=== PATIENT | female | born 1965 | race Caucasian/White ===

== ENCOUNTER 2018-02-23 00:14 | Outpatient (CLI) | payer MEDICARE, MEDICAID ==
[~2018-02-23 00:14] MED LIST: ALBU1.25 NEB; BENA20TA82 PO; HCTZ25T PO; LEVO50TA78 PO; NORCO10T PO
== END 2018-02-23 23:59 | disposition home or self-care (01) ==
LOC: DIABETIC 00:14
PROVIDERS: ATTEND Student in an Organized Health Care Education/Training Program
DX: Z71.3 Dietary counseling and surveillance (principal); E66.9 Obesity, unspecified; R63.4 Abnormal weight loss; J44.9 Chronic obstructive pulmonary disease, unspecified; I10 Essential (primary) hypertension
CPT/HCPCS: 97802

== ENCOUNTER 2018-03-29 00:22 | Outpatient (CLI) | payer MEDICARE, MEDICAID | END 2018-03-29 23:59 | disposition home or self-care (01) | LOC: DIABETIC 00:22 | PROVIDERS: ATTEND Student in an Organized Health Care Education/Training Program | DX: Z71.3 Dietary counseling and surveillance (principal); Z53.21 Procedure and treatment not carried out due to patient leaving prior to being seen by health care provider ==

== ENCOUNTER 2018-05-04 03:08 | Outpatient (CLI) | payer MEDICARE, MEDICAID | END 2018-05-04 23:59 | disposition home or self-care (01) | LOC: DIABETIC 03:08 | PROVIDERS: ATTEND Student in an Organized Health Care Education/Training Program | DX: Z71.3 Dietary counseling and surveillance (principal); E66.9 Obesity, unspecified; J44.9 Chronic obstructive pulmonary disease, unspecified; I10 Essential (primary) hypertension; Z87.891 Personal history of nicotine dependence | CPT/HCPCS: 97802 ==

== ENCOUNTER 2019-11-07 06:49 | Day surgery (SDC) | payer MEDICARE, MEDICAID ==
[2019-11-01 16:25] LABS: BASOPHILS # (AUTO) 0.1 X10'3 (0-0.2); BASOPHILS % (AUTO) 1.7 % (0-1); EOSINOPHILS # (AUTO) 0.1 X10'3 (0-0.9); EOSINOPHILS % (AUTO) 1.2 % (0-6); LYMPHOCYTES # (AUTO) 1.5 X10'3 (1.1-4.8); LYMPHOCYTES % (AUTO) 24.5 % (21-51); MEAN CORPUSCULAR HEMOGLOBIN 29.9 PG (27.0-31.0); MEAN CORPUSCULAR VOLUME 90.4 FL (78-98); MEAN PLATELET VOLUME 8.4 FL (7.4-10.4); MONOCYTES # (AUTO) 0.4 X10'3 (0-0.9); MONOCYTES % (AUTO) 6.4 % (2-12); NEUTROPHILS # (AUTO) 3.9 X10'3 (1.8-7.7); NEUTROPHILS % (AUTO) 66.2 % (42-75); PRE OP HEMOGLOBIN 14.2 g/dL (12.0-16.0); PRE OP PLATELET COUNT 207 X10'3 (140-440); RED BLOOD COUNT 4.76 X10'6 (4.20-5.60); RED CELL DISTRIBUTION WIDTH 13.3 % (11.5-14.5)
[2019-11-01 16:27] LABS: CLARITY,URINE CLOUDY (Clear); COLOR,URINE YELLOW (Yellow); GLUCOSE, URINE NEGATIVE (Neg); KETONES,URINE NEGATIVE (Neg); LEUKOCYTE ESTERASE ,URINE NEGATIVE (Neg); NITRITES, URINE NEGATIVE (Neg); OCCULT BLOOD,URINE NEGATIVE (Neg); PROTEIN,URINE NEGATIVE (Neg); UROBILINOGEN,URINE 0.2 E.U/dL (0.2-1.0)
[2019-11-01 16:38] LABS: PRE OP PROTIME 10.1 SECONDS (9.0-12.0)
[2019-11-01 16:45] LABS: UA COLLECTION TYPE CLN CATCH MIDSTREAM
[2019-11-01 16:46] LABS: BACTERIA,URINE 1+ /HPF (Neg); CAL OXALATE CRYSTALS 3+ /HPF (NEGATIVE); MUCUS STRANDS MANY /LPF (Neg); RBC,URINE NONE SEEN /HPF (0-2); SQUAMOUS EPITHELIAL CELL,UR MANY /LPF (FEW); WBC,URINE 0-4 /HPF (0-4)
[2019-11-01 16:50] LABS: ALBUMIN 3.9 G/DL (3.4-5.0); ALBUMIN/GLOBULIN RATIO 1.1 (1.1-1.5); ALKALINE PHOSPHATASE 91 IU/L (46-116); BLOOD UREA NITROGEN 25 MG/DL (7-18); BUN/CREATININE RATIO 35.2 (6.6-38.0); CALCIUM 9.5 MG/DL (8.5-10.1); CHLORIDE 105 MMOL/L (99-107); CREATININE 0.71 MG/DL (0.40-0.90); PRE OP ALT 16 U/L (30-65); PRE OP ANION GAP 5 (8-16); PRE OP AST 15 U/L (10-37); PRE OP BILIRUB, TOTAL 0.5 MG/DL (0.0-1.0); PRE OP GLUCOSE 70 MG/DL (70-104); PRE OP POTASSIUM 4.1 MMOL/L (3.4-5.1); PRE OP SODIUM 142 MMOL/L (135-145); TOTAL CARBON DIOXIDE 31.8 MMOL/L (24-32); TOTAL PROTEIN 7.3 G/DL (6.4-8.2); eGFR 86 ML/MIN
[~2019-11-07] VITALS: Ht 170.2 cm; Wt 77.1 kg
[2019-11-07] VITALS (14 sets, daily range): BP systolic 112–155; BP diastolic 60–85
[~2019-11-07 06:49] MED LIST changes: +ALBU18HF2 INH; -BENA20TA82 PO; +DILT120T3 PO; -HCTZ25T PO; +albuterol 2.5 MG/3 ML nebule NEB ONE; +ceFOXitin sod/dextrose 2g/50ml 50 ML IV ONE; +famotidine 20mg tablet PO ONE; +ringers solution, lacted 1,000 ML IV SCH
[2019-11-07] MEDS ORDERED: BUPIVAcaine/PF 2.5 mg/ml (0.25%) 30ml vial ONE (07:53)
[2019-11-07] MEDS ORDERED: ringers solution, lacted 1,000 ML IV SCH (08:14)
[2019-11-07] MEDS ORDERED: morphine 4 MG/ML inj SYRINge IV PRN (08:15)
[2019-11-07] MEDS ORDERED: morphine 2 MG/ML inj. syringe IV PRN (08:15)
[2019-11-07] MEDS ORDERED: meperidine/PF 25mg/ml syringe IV PRN ×3 (08:15)
[2019-11-07] MEDS ORDERED: ondansetron/PF 4mg/2ml inj IV PRN (08:15)
[2019-11-07] MEDS ORDERED: proCHLORperazine 10 MG/2 ml inj IV PRN (08:15)
[2019-11-07] MEDS ORDERED: dexamethasone sod phosphate 10mg/ml inj ONE (08:20)
[2019-11-07] MEDS ORDERED: sevoflurane 250ml liquid IH ONE (08:20)
[2019-11-07] MEDS ORDERED: midazolam 2 mg/2 ml injection ONE (08:27)
[2019-11-07] MEDS ORDERED: fentaNYL /PF 50mcg/ml 5ml ampule ONE (08:29)
[2019-11-07] MEDS ORDERED: LIDOcaine 2% (20mg/ml) 5ml vial ONE (08:30)
[2019-11-07] MEDS ORDERED: propofol inj 20 ML IV ONE (08:30)
[2019-11-07] MEDS ORDERED: rocuronium 10mg/ml inj IV ONE (08:31)
[2019-11-07] MEDS ORDERED: ondansetron/PF 4mg/2ml inj ONE (08:45)
[2019-11-07] MEDS ORDERED: acetaminophen 1,000mg/100ml IV 100 ML IV ONE (08:50)
--- NOTE | 2019-11-07 10:24 | NUR ---
Received from OR via [facility], accompanied by Anesthesiologist DR ESTRELLA and report given by Anesthesiologist. PT DROWSY, DENIES PAIN, ABDOMEN W/4 LAP SITES W/DERMABOND, CDI, SHIRLEY PAD IN PLACE. Addendum: 11/07/19 at 1045 by Maryann Marti RN Amended: Links added.
[2019-11-07] MEDS ORDERED: HYDROcodone/acetaminophen 10/325mg tab PO ONE (12:35)
--- NOTE | 2019-11-07 13:14 | NUR ---
D/C INSTRUCTIONS GIVEN AND GONE OVER W/PT WHO VERBALIZED UNDERSTANDING, PT COMFORTABLE, AMBULATES WELL, HAD LARGE VOID, TOLERATING LIQUIDS, PT D/CD TO HOME VIA W/C TO PRIVATE VEHICLE W/O INCIDENT. Addendum: 11/07/19 at 1331 by Maryann Marti RN Amended: Links added.
== END 2019-11-07 13:14 | disposition home or self-care (01) ==
LOC: PAS 06:49
PROVIDERS: ATTEND Obstetrics & Gynecology
DX: N85.2 Hypertrophy of uterus (principal); N81.4 Uterovaginal prolapse, unspecified; N80.0 Endometriosis of uterus; N72 Inflammatory disease of cervix uteri; N83.8 Other noninflammatory disorders of ovary, fallopian tube and broad ligament; J45.909 Unspecified asthma, uncomplicated; E03.9 Hypothyroidism, unspecified; M19.90 Unspecified osteoarthritis, unspecified site; I10 Essential (primary) hypertension; E66.9 Obesity, unspecified; Z68.26 Body mass index [BMI] 26.0-26.9, adult; Z79.899 Other long term (current) drug therapy; Z79.01 Long term (current) use of anticoagulants; Z87.891 Personal history of nicotine dependence; Z95.0 Presence of cardiac pacemaker; Z88.8 Allergy status to other drugs, medicaments and biological substances; Z11.59 Encounter for screening for other viral diseases
CPT/HCPCS: 36415; 58571; 71046; 80053; 81001; 82948; 84443; 85025; 85610; 85730; 86885; 86900; 86901; 87635; 93005; C1758; J0131; J0694; J1100; J2001; J2250; J2405; J2704; J3010; J3490; J7120; 88307; A4618; A7000

== ENCOUNTER → 2020-01-06 | Outpatient (CLI) | payer MEDICARE, MEDICAID ==
[~2020-01-06] MED LIST changes: -albuterol 2.5 MG/3 ML nebule NEB ONE; -ceFOXitin sod/dextrose 2g/50ml 50 ML IV ONE; -famotidine 20mg tablet PO ONE; -ringers solution, lacted 1,000 ML IV SCH
== END | disposition home or self-care (01) ==
LOC: RAD 10:36
PROVIDERS: ATTEND Psychiatry & Neurology Neurology
DX: R56.9 Unspecified convulsions (principal)
CPT/HCPCS: 95816

== ENCOUNTER 2024-05-27 12:15 | Inpatient (IN) | payer MEDICARE, MEDICAID ==
[~2024-05-27] VITALS: Ht 170.2 cm; Wt 67.8 kg
[2024-05-27] VITALS (7 sets, daily range): BP systolic 119–132; BP diastolic 74–83; PULSE 84–110; RESP 16–24; TEMP 97.8–98.8; O2SAT 96–97
[2024-05-27] MEDS ORDERED: mag hydrox/Alum hydrox/simeth 30ml oral suspension PO PRN (14:25)
[2024-05-27] MEDS ORDERED: acetaminophen 325mg tablet PO PRN ×2 (14:25)
[2024-05-27] MEDS ORDERED: loperamide 2mg capsule PO PRN (14:25)
[2024-05-27] MEDS ORDERED: HYDR-3717 PO (16:00)
[2024-05-27] MEDS: albuterol 2.5 MG/3 ML nebule NEB PRN (20:07)
[2024-05-27] MEDS: hydrOXYzine 10 MG tablet PO SCH (21:46)
[2024-05-27] MEDS: HYDROcodone/acetaminophen 10/325mg tab PO PRN (21:47)
[2024-05-28 07:30] VITALS: BP 118/83; PULSE 80; RESP 16; TEMP 97.5; O2SAT 96
[2024-05-28 08:09] LABS: HEMOGLOBIN A1C 5.3 % (4.5-6.2)
[2024-05-28] MEDS: HYDROcodone/acetaminophen 10/325mg tab PO SCH (08:38)
[2024-05-28] MEDS: sertraline 25mg tablet PO SCH (08:38)
[2024-05-28] MEDS: magnesium hydroxide 30ml (MOM) UD suspension PO PRN (08:41)
[2024-05-28 08:52] LABS: CHOLESTEROL 127 MG/DL (0-200); HDL CHOLESTEROL 62 MG/DL (35-60); LDL CHOLESTEROL 50 MG/DL (50-100); TRIGLYCERIDES 96 MG/DL (20-135)
[2024-05-28 14:42] LABS: BASOPHILS % (AUTO) 1.2 % (0-1); EOSINOPHILS # (AUTO) 0.1 X10'3 (0-0.9); EOSINOPHILS % (AUTO) 4.8 % (0-6); HEMATOCRIT 40.9 % (35.0-45.0); HEMOGLOBIN 14.2 g/dl (12.0-16.0); LYMPHOCYTES # (AUTO) 1.1 X10'3 (1.1-4.8); LYMPHOCYTES % (AUTO) 39.5 % (21-51); MEAN CORPUSCULAR HEMOGLOBIN 30.8 PG (27.0-31.0); MEAN CORPUSCULAR HGB CONC 34.7 g/dL (33.0-36.5); MEAN CORPUSCULAR VOLUME 88.9 FL (78-98); MEAN PLATELET VOLUME 9.2 FL (7.4-10.4); MONOCYTES # (AUTO) 0.3 X10'3 (0-0.9); MONOCYTES % (AUTO) 11.1 % (2-12); NEUTROPHILS # (AUTO) 1.2 X10'3 (1.8-7.7); NEUTROPHILS % (AUTO) 43.4 % (42-75); PLATELET COUNT 163 X10'3 (140-440); RED BLOOD COUNT 4.61 X10'6 (4.20-5.60); RED CELL DISTRIBUTION WIDTH 13.7 % (11.5-14.5); WHITE BLOOD COUNT 2.8 X10'3 (4.5-11.0)
[2024-05-28 14:54] LABS: ALANINE AMINOTRANSFERASE 14 U/L (12-78); ALBUMIN 3.6 G/DL (3.4-5.0); ALBUMIN/GLOBULIN RATIO 1.1 (1.1-1.5); ALKALINE PHOSPHATASE 69 IU/L (46-116); ANION GAP 12 (8-16); ASPARTATE AMINO TRANSFERASE 18 U/L (10-37); BILIRUBIN,TOTAL 0.5 MG/DL (0.1-1.0); BLOOD UREA NITROGEN 9 MG/DL (7-18); BUN/CREATININE RATIO 12.9 (10.0-20.0); CALCIUM 8.8 MG/DL (8.5-10.1); CHLORIDE 107 MMOL/L (99-107); GLUCOSE 96 MG/DL (70-104); SODIUM 147 MMOL/L (135-145); TOTAL CARBON DIOXIDE 27.7 MMOL/L (24-32); TOTAL PROTEIN 6.9 G/DL (6.4-8.2); eCRCL 85 ML/MIN; eGFR 86 ML/MIN
[2024-05-28 15:07] LABS: PLATELET ESTIMATE NORMAL; TOTAL CELLS COUNTED 100
[2024-05-28 20:00] VITALS: BP 117/84; PULSE 68; RESP 18; TEMP 97.3; O2SAT 97
[2024-05-28 20:33] VITALS: PULSE 75; RESP 18; O2SAT 98
[2024-05-28 20:39] VITALS: PULSE 81; RESP 16
[2024-05-29 07:30] VITALS: BP 128/86; PULSE 101; RESP 16; TEMP 97.2; O2SAT 94
[2024-05-29] MEDS: levoFLOXACIN 500mg tablet PO SCH (08:00)
[2024-05-29] MEDS: sertraline 25mg tablet PO SCH (09:02)
[2024-05-29] MEDS ORDERED: SERT-432 PO (17:22)
[2024-05-29 19:53] VITALS: BP 105/79; PULSE 87; RESP 16; TEMP 98.3; O2SAT 96
[2024-05-29 20:33] VITALS: PULSE 92; RESP 16; O2SAT 99
[2024-05-30] MEDS: azithromycin 250mg tablet PO SCH (07:19)
[2024-05-30 07:30] VITALS: BP 129/89; PULSE 90; RESP 16; TEMP 97.6; O2SAT 97
== END 2024-05-30 14:17 | disposition home or self-care (01) | DRG 885 ==
LOC: ADULT MH 12:15 → UNDOADMIN 14:52 → ADULT MH 14:52
PROVIDERS: ADMIT Psychiatry & Neurology Psychiatry; ATTEND Psychiatry & Neurology Psychiatry
DX: F33.9 Major depressive disorder, recurrent, unspecified (principal); J44.89 Other specified chronic obstructive pulmonary disease; R45.851 Suicidal ideations; F03.93 Unspecified dementia, unspecified severity, with mood disturbance; G89.29 Other chronic pain; I10 Essential (primary) hypertension; M79.7 Fibromyalgia; E03.9 Hypothyroidism, unspecified; Z96.652 Presence of left artificial knee joint; F41.9 Anxiety disorder, unspecified; K21.9 Gastro-esophageal reflux disease without esophagitis; S51.812A Laceration without foreign body of left forearm, initial encounter; Z87.891 Personal history of nicotine dependence; Z88.1 Allergy status to other antibiotic agents; Z88.6 Allergy status to analgesic agent; Z90.49 Acquired absence of other specified parts of digestive tract; X58.XXXA Exposure to other specified factors, initial encounter; Y93.89 Activity, other specified; Y92.89 Other specified places as the place of occurrence of the external cause; Y99.8 Other external cause status
CPT/HCPCS: 36415; 71045; 80053; 80061; 83036; 84145; 85007; 85025; 85651; 87081; 87502; 87503; 94640; 94760